=== PATIENT | male | born 1970 | race Caucasian/White ===

== ENCOUNTER 2023-09-13 10:29 | Inpatient (IN) | payer MEDICAID, OTHER ==
[~2023-09-13] VITALS: Ht 172.7 cm; Wt 60.9 kg
[2023-09-13] MEDS: METOPROLOL 5 MG/5 ML VIAL IV SCH ×3 (11:25→11:55)
[2023-09-13 12:03] LABS: VENOUS BASE EXCESS 3.1 (-2.0-2.0); VENOUS HCO3 29.3 MMOL/L (23.0-27.0); VENOUS O2 SATURATION 87.3 % (60.0-80.0); VENOUS PARTIAL PRESSURE CO2 50.7 mmHg (38.0-50.0); VENOUS STANDARD HCO3 26.9 MMOL/L; VENOUS TOTAL CO2 30.9 MMOL/L (24.0-28.0)
[2023-09-13 12:14] LABS: BASO % 0.2 % (0.0-1.0); HEMATOCRIT 44.3 % (42.0-52.0); LYMPH # 0.5 10^3/uL (1.5-5.0); LYMPH % 9.9 % (24.0-44.0); MEAN CORPUSCULAR HEMOGLOBIN 27.3 pg (27.0-33.0); MEAN CORPUSCULAR HGB CONC 31.6 g/dl (32.0-36.5); MEAN CORPUSCULAR VOLUME 86.5 fl (80.0-96.0); MONO # 0.4 10^3/uL (0.0-0.8); MONO % 8.8 % (2.0-8.0); NEUTROPHILS # 3.8 10^3/uL (1.5-8.5); NEUTROPHILS % 80.9 % (36.0-66.0); PLATELET COUNT, AUTOMATED 211 10^3/uL (150-450); RED BLOOD COUNT 5.12 10^6/uL (4.30-6.10); WHITE BLOOD COUNT 4.7 10^3/uL (4.0-10.0)
[2023-09-13 12:24] LABS: INR 1.42; PROTHROMBIN TIME 16.9 SECONDS (12.5-14.5)
[2023-09-13] MEDS ORDERED: WARF-58 PO (12:27)
[2023-09-13] MEDS ORDERED: DILT120C89 PO (12:27)
[2023-09-13 12:40] LABS: ALBUMIN 3.1 G/DL (3.2-5.2); ALKALINE PHOSPHATASE 277 U/L (46-116); ALT/SGPT 11 U/L (7.0-40); AST/SGOT 34 U/L (<34); BILIRUBIN,DIRECT 0.7 MG/DL (<0.4); BILIRUBIN,TOTAL 1.4 MG/DL (0.3-1.2); BLOOD UREA NITROGEN 11 MG/DL (9-23); CALCIUM LEVEL 8.7 MG/DL (8.5-10.1); CARBON DIOXIDE LEVEL 25 MMOL/L (20-31); CHLORIDE LEVEL 102 MMOL/L (98-107); GLOMERULAR FILTRATION RATE > 60.0 (>56); GLUCOSE, FASTING 89 MG/DL (60-100); MAGNESIUM LEVEL 1.8 MG/DL (1.8-2.4); POTASSIUM SERUM 4.3 MMOL/L (3.5-5.1); SODIUM LEVEL 135 MMOL/L (136-145); THYROID STIMULATING HORMONE 2.659 uIU/ML (0.55-4.78); TOTAL PROTEIN 7.3 G/DL (5.7-8.2)
[2023-09-13] MEDS ORDERED: FUROSEMIDE 40MG/4ML VIAL IV ONE (13:15)
[2023-09-13] MEDS ORDERED: MED REC IN PROGRESS XX SCH (13:35)
[2023-09-13] MEDS ORDERED: HOME MED LIST COMPLETE! XX SCH (14:40)
[2023-09-13 15:57] VITALS: BP 132/72; TEMP 98.4; O2SAT 97
[2023-09-13] MEDS ORDERED: METOPROLOL TART 25 MG TABLET PO ONE (16:00)
[2023-09-13] MEDS: FUROSEMIDE 40MG/4ML VIAL IV SCH (16:40)
[2023-09-13 19:48] VITALS: BP 116/76; TEMP 98.8; O2SAT 94
[2023-09-13] MEDS ORDERED: METOPROLOL TART 25 MG TABLET PO SCH (21:00)
[2023-09-13] MEDS: APIXABAN 5 MG TAB (ELIQUIS) PO SCH (21:20)
[2023-09-14] VITALS (7 sets, daily range): BP systolic 106–126; BP diastolic 62–77; TEMP 98.2–98.9; O2SAT 93–97
[2023-09-14 06:04] LABS: HEMATOCRIT 40.4 % (42.0-52.0); HEMOGLOBIN 12.7 g/dl (13.5-17.5); MEAN CORPUSCULAR HEMOGLOBIN 27.1 pg (27.0-33.0); MEAN CORPUSCULAR HGB CONC 31.4 g/dl (32.0-36.5); MEAN CORPUSCULAR VOLUME 86.1 fl (80.0-96.0); PLATELET COUNT, AUTOMATED 194 10^3/uL (150-450); RED BLOOD COUNT 4.69 10^6/uL (4.30-6.10); WHITE BLOOD COUNT 4.4 10^3/uL (4.0-10.0)
[2023-09-14 06:27] LABS: BLOOD UREA NITROGEN 14 MG/DL (9-23); CALCIUM LEVEL 8.9 MG/DL (8.5-10.1); CARBON DIOXIDE LEVEL 29 MMOL/L (20-31); CHLORIDE LEVEL 102 MMOL/L (98-107); CREATININE FOR GFR 1.13 MG/DL (0.70-1.30); GLOMERULAR FILTRATION RATE > 60.0 (>56); GLUCOSE, FASTING 96 MG/DL (60-100); MAGNESIUM LEVEL 1.8 MG/DL (1.8-2.4); POTASSIUM SERUM 4.3 MMOL/L (3.5-5.1); SODIUM LEVEL 138 MMOL/L (136-145)
[2023-09-14] MEDS ORDERED: SPIRONOLACTONE 25 MG TAB PO SCH (09:00)
[2023-09-14] MEDS ORDERED: ELIQ5TAB PO (09:22)
[2023-09-14] MEDS: APIXABAN 5 MG TAB (ELIQUIS) PO SCH ×2 (09:51→21:01)
[2023-09-14] MEDS: SPIRONOLACTONE 12.5MG PER 1/2 TABLET PO SCH (09:51)
[2023-09-14] MEDS: METOPROLOL TART 25 MG TABLET PO SCH ×4 (09:51→21:00)
[2023-09-14] MEDS: FUROSEMIDE 40MG/4ML VIAL IV SCH ×4 (09:51→18:27)
[2023-09-14] MEDS: MAGNESIUM OXIDE 400MG TAB (MAG-OX) PO SCH ×2 (13:13→21:01)
[2023-09-15] VITALS (9 sets, daily range): BP systolic 110–126; BP diastolic 65–75; TEMP 98.1–99.4; O2SAT 93–99
[2023-09-15 06:09] LABS: BASO % 0.2 % (0.0-1.0); HEMATOCRIT 41.3 % (42.0-52.0); HEMOGLOBIN 12.8 g/dl (13.5-17.5); LYMPH # 0.9 10^3/uL (1.5-5.0); LYMPH % 16.5 % (24.0-44.0); MEAN CORPUSCULAR HEMOGLOBIN 26.8 pg (27.0-33.0); MEAN CORPUSCULAR VOLUME 86.6 fl (80.0-96.0); MONO # 0.7 10^3/uL (0.0-0.8); MONO % 13.8 % (2.0-8.0); NEUTROPHILS # 3.6 10^3/uL (1.5-8.5); NEUTROPHILS % 69.3 % (36.0-66.0); PLATELET COUNT, AUTOMATED 218 10^3/uL (150-450); RED BLOOD COUNT 4.77 10^6/uL (4.30-6.10); WHITE BLOOD COUNT 5.2 10^3/uL (4.0-10.0)
[2023-09-15 06:40] LABS: BLOOD UREA NITROGEN 21 MG/DL (9-23); CALCIUM LEVEL 8.4 MG/DL (8.5-10.1); CARBON DIOXIDE LEVEL 31 MMOL/L (20-31); CHLORIDE LEVEL 99 MMOL/L (98-107); CREATININE FOR GFR 1.26 MG/DL (0.70-1.30); GLOMERULAR FILTRATION RATE > 60.0 (>56); GLUCOSE, FASTING 113 MG/DL (60-100); POTASSIUM SERUM 4.6 MMOL/L (3.5-5.1); SODIUM LEVEL 134 MMOL/L (136-145)
[2023-09-15] MEDS ORDERED: metOLazone 5 MG TAB PO ONE (09:00)
[2023-09-15] MEDS: MAGNESIUM OXIDE 400MG TAB (MAG-OX) PO SCH ×2 (09:25→20:52)
[2023-09-15] MEDS: METOPROLOL TART 25 MG TABLET PO SCH ×2 (09:25→20:52)
[2023-09-15] MEDS: SPIRONOLACTONE 12.5MG PER 1/2 TABLET PO SCH ×2 (09:25→20:52)
[2023-09-15] MEDS: FUROSEMIDE 40MG/4ML VIAL IV SCH (09:25)
[2023-09-15] MEDS: APIXABAN 5 MG TAB (ELIQUIS) PO SCH ×2 (09:25→20:52)
[2023-09-15] MEDS: FUROSEMIDE injection 250 MG in D5W 225 ML IV SCH (16:28)
[2023-09-16 03:47] VITALS: BP 124/79; TEMP 98.5; O2SAT 95
[2023-09-16 07:06] LABS: BASO % 0.4 % (0.0-1.0); HEMATOCRIT 41.5 % (42.0-52.0); HEMOGLOBIN 12.9 g/dl (13.5-17.5); LYMPH # 0.7 10^3/uL (1.5-5.0); LYMPH % 13.3 % (24.0-44.0); MEAN CORPUSCULAR HGB CONC 31.1 g/dl (32.0-36.5); MEAN CORPUSCULAR VOLUME 86.8 fl (80.0-96.0); MONO # 0.7 10^3/uL (0.0-0.8); MONO % 13.5 % (2.0-8.0); NEUTROPHILS # 3.9 10^3/uL (1.5-8.5); NEUTROPHILS % 72.2 % (36.0-66.0); PLATELET COUNT, AUTOMATED 211 10^3/uL (150-450); RED BLOOD COUNT 4.78 10^6/uL (4.30-6.10); WHITE BLOOD COUNT 5.4 10^3/uL (4.0-10.0)
[2023-09-16 07:41] VITALS: BP 128/62; TEMP 98.2; O2SAT 95; O2SAT 96
[2023-09-16 07:48] LABS: BLOOD UREA NITROGEN 22 MG/DL (9-23); CALCIUM LEVEL 9.6 MG/DL (8.5-10.1); CARBON DIOXIDE LEVEL 32 MMOL/L (20-31); CHLORIDE LEVEL 96 MMOL/L (98-107); CREATININE FOR GFR 1.27 MG/DL (0.70-1.30); GLOMERULAR FILTRATION RATE > 60.0 (>56); GLUCOSE, FASTING 110 MG/DL (60-100); MAGNESIUM LEVEL 2.1 MG/DL (1.8-2.4); POTASSIUM SERUM 4.4 MMOL/L (3.5-5.1); SODIUM LEVEL 136 MMOL/L (136-145)
[2023-09-16] MEDS: APIXABAN 5 MG TAB (ELIQUIS) PO SCH ×2 (08:07→20:59)
[2023-09-16] MEDS: MAGNESIUM OXIDE 400MG TAB (MAG-OX) PO SCH ×2 (08:07→20:59)
[2023-09-16] MEDS: SPIRONOLACTONE 12.5MG PER 1/2 TABLET PO SCH ×2 (08:07→20:59)
[2023-09-16] MEDS: METOPROLOL TART 25 MG TABLET PO SCH ×2 (08:08→20:59)
[2023-09-16 11:55] VITALS: BP 109/56; TEMP 98.6; O2SAT 97
[2023-09-16 16:00] VITALS: BP 118/73; TEMP 98.3; O2SAT 96
[2023-09-16] MEDS: FUROSEMIDE injection 250 MG in D5W 225 ML IV SCH (18:29)
[2023-09-16 20:09] VITALS: BP 112/68; TEMP 98.7; O2SAT 97
[2023-09-16 23:12] VITALS: BP 123/75; TEMP 98.7; O2SAT 94
[2023-09-17] VITALS (7 sets, daily range): BP systolic 110–120; BP diastolic 71–78; TEMP 98.2–99.2; O2SAT 92–98
[2023-09-17 06:48] LABS: CALCIUM LEVEL 9.4 MG/DL (8.5-10.1); CREATININE FOR GFR 1.34 MG/DL (0.70-1.30); GLOMERULAR FILTRATION RATE 58.9 (>56); MAGNESIUM LEVEL 2.1 MG/DL (1.8-2.4); POTASSIUM SERUM 4.4 MMOL/L (3.5-5.1)
[2023-09-17] MEDS: SPIRONOLACTONE 12.5MG PER 1/2 TABLET PO SCH ×2 (08:19→21:03)
[2023-09-17] MEDS: APIXABAN 5 MG TAB (ELIQUIS) PO SCH ×2 (08:20→21:03)
[2023-09-17] MEDS: MAGNESIUM OXIDE 400MG TAB (MAG-OX) PO SCH ×2 (08:20→21:03)
[2023-09-17] MEDS: FUROSEMIDE 20 MG TAB PO SCH ×2 (08:20→16:08)
[2023-09-17] MEDS: METOPROLOL TART 25 MG TABLET PO SCH ×2 (08:20→21:03)
[2023-09-18 03:44] VITALS: BP 107/66; TEMP 98.2; O2SAT 92
[2023-09-18 06:23] LABS: BASO % 0.4 % (0.0-1.0); HEMATOCRIT 40.6 % (42.0-52.0); HEMOGLOBIN 12.7 g/dl (13.5-17.5); LYMPH # 0.8 10^3/uL (1.5-5.0); LYMPH % 15.7 % (24.0-44.0); MEAN CORPUSCULAR HEMOGLOBIN 27.1 pg (27.0-33.0); MEAN CORPUSCULAR HGB CONC 31.3 g/dl (32.0-36.5); MEAN CORPUSCULAR VOLUME 86.6 fl (80.0-96.0); MONO # 0.7 10^3/uL (0.0-0.8); MONO % 12.7 % (2.0-8.0); NEUTROPHILS # 3.8 10^3/uL (1.5-8.5); PLATELET COUNT, AUTOMATED 221 10^3/uL (150-450); RED BLOOD COUNT 4.69 10^6/uL (4.30-6.10); WHITE BLOOD COUNT 5.3 10^3/uL (4.0-10.0)
[2023-09-18 06:43] LABS: CALCIUM LEVEL 8.9 MG/DL (8.5-10.1); CREATININE FOR GFR 1.33 MG/DL (0.70-1.30); GLOMERULAR FILTRATION RATE 59.4 (>56); MAGNESIUM LEVEL 2.3 MG/DL (1.8-2.4); POTASSIUM SERUM 4.6 MMOL/L (3.5-5.1)
[2023-09-18 08:07] VITALS: BP 120/77; TEMP 97.9; O2SAT 100
[2023-09-18] MEDS: FUROSEMIDE 20 MG TAB PO SCH (08:33)
[2023-09-18] MEDS: APIXABAN 5 MG TAB (ELIQUIS) PO SCH (08:33)
[2023-09-18] MEDS: SPIRONOLACTONE 12.5MG PER 1/2 TABLET PO SCH (08:33)
[2023-09-18] MEDS: MAGNESIUM OXIDE 400MG TAB (MAG-OX) PO SCH (08:33)
[2023-09-18] MEDS: METOPROLOL TART 25 MG TABLET PO SCH (08:33)
[2023-09-18] MEDS ORDERED: METO1TAB87 PO (09:25)
[2023-09-18] MEDS ORDERED: ALDA25TA2 PO (09:25)
[2023-09-18] MEDS ORDERED: MAGN400T2 PO (09:25)
[2023-09-18] MEDS ORDERED: FURO20TA2 PO (09:25)
[2023-09-18] MEDS ORDERED: METO25TA PO (09:28)
== END 2023-09-18 13:36 | disposition home health service (06) | DRG 194 ==
LOC: M ED 10:29 → M ED INP 14:34 → M PCU 15:51
PROVIDERS: ADMIT Internal Medicine; ATTEND Internal Medicine
DX: I50.33 Acute on chronic diastolic (congestive) heart failure (principal); N17.9 Acute kidney failure, unspecified; Q21.3 Tetralogy of Fallot; I27.20 Pulmonary hypertension, unspecified; I36.0 Nonrheumatic tricuspid (valve) stenosis; I48.92 Unspecified atrial flutter; E87.1 Hypo-osmolality and hyponatremia; R26.89 Other abnormalities of gait and mobility; F17.220 Nicotine dependence, chewing tobacco, uncomplicated; F32.A Depression, unspecified; N18.9 Chronic kidney disease, unspecified

== ENCOUNTER → 2023-09-24 | Outpatient (REF) | payer OTHER ==
[~2023-09-24] MED LIST: ALDA25TA2 PO; DILT120C89 PO; ELIQ5TAB PO; FURO20TA2 PO; MAGN400T2 PO; METO1TAB87 PO; METO25TA PO; WARF-58 PO
[2023-09-24 12:46] LABS: BASO % 0.4 % (0.0-1.0); HEMATOCRIT 43.9 % (42.0-52.0); HEMOGLOBIN 13.5 g/dl (13.5-17.5); LYMPH # 0.8 10^3/uL (1.5-5.0); LYMPH % 17.7 % (24.0-44.0); MEAN CORPUSCULAR HEMOGLOBIN 26.9 pg (27.0-33.0); MEAN CORPUSCULAR HGB CONC 30.8 g/dl (32.0-36.5); MEAN CORPUSCULAR VOLUME 87.5 fl (80.0-96.0); MONO # 0.7 10^3/uL (0.0-0.8); NEUTROPHILS # 3.2 10^3/uL (1.5-8.5); NEUTROPHILS % 67.7 % (36.0-66.0); PLATELET COUNT, AUTOMATED 252 10^3/uL (150-450); RED BLOOD COUNT 5.02 10^6/uL (4.30-6.10); WHITE BLOOD COUNT 4.7 10^3/uL (4.0-10.0)
[2023-09-24 13:17] LABS: ALBUMIN 3.9 G/DL (3.2-5.2); ALKALINE PHOSPHATASE 295 U/L (46-116); ALT/SGPT 18 U/L (7.0-40); AST/SGOT 36 U/L (<34); BILIRUBIN,TOTAL 1.5 MG/DL (0.3-1.2); BLOOD UREA NITROGEN 38 MG/DL (9-23); CALCIUM LEVEL 9.8 MG/DL (8.5-10.1); CARBON DIOXIDE LEVEL 33 MMOL/L (20-31); CHLORIDE LEVEL 95 MMOL/L (98-107); CREATININE FOR GFR 1.28 MG/DL (0.70-1.30); GLOMERULAR FILTRATION RATE > 60.0 (>56); GLUCOSE, FASTING 117 MG/DL (60-100); POTASSIUM SERUM 3.9 MMOL/L (3.5-5.1); SODIUM LEVEL 133 MMOL/L (136-145); TOTAL PROTEIN 8.4 G/DL (5.7-8.2)
== END ==
LOC: M LAB REF 12:22
PROVIDERS: ATTEND Family Medicine Addiction Medicine
DX: N28.9 Disorder of kidney and ureter, unspecified (principal); D64.9 Anemia, unspecified; E83.42 Hypomagnesemia

== ENCOUNTER 2024-08-20 15:01 | Inpatient (IN) | payer OTHER ==
[~2024-08-20] VITALS: Ht 172.7 cm; Wt 63.8 kg
[2024-08-20 16:45] LABS: BASO % 0.2 % (0.0-1.0); HEMATOCRIT 44.4 % (42.0-52.0); HEMOGLOBIN 13.6 g/dl (13.5-17.5); LYMPH # 0.4 10^3/uL (1.5-5.0); LYMPH % 6.9 % (24.0-44.0); MEAN CORPUSCULAR HGB CONC 30.6 g/dl (32.0-36.5); MEAN CORPUSCULAR VOLUME 91.5 fl (80.0-96.0); MONO # 0.7 10^3/uL (0.0-0.8); MONO % 11.8 % (2.0-8.0); NEUTROPHILS # 4.8 10^3/uL (1.5-8.5); NEUTROPHILS % 80.9 % (36.0-66.0); PLATELET COUNT, AUTOMATED 193 10^3/uL (150-450); RED BLOOD COUNT 4.85 10^6/uL (4.30-6.10); WHITE BLOOD COUNT 5.9 10^3/uL (4.0-10.0)
[2024-08-20 17:12] LABS: ALBUMIN 3.5 G/DL (3.2-5.2); ALKALINE PHOSPHATASE 402 U/L (40-129); ALT/SGPT 20 U/L (7.0-40); AST/SGOT 66 U/L (<34); BILIRUBIN,DIRECT 1.5 MG/DL (<0.4); BLOOD UREA NITROGEN 23 MG/DL (9-23); CALCIUM LEVEL 9.3 MG/DL (8.5-10.1); CARBON DIOXIDE LEVEL 28 MMOL/L (20-31); CHLORIDE LEVEL 105 MMOL/L (98-107); CK-MB VALUE MASS 5.9 NG/ML (<3.6); CPK CREATINE PHOSPHOKINASE 176 U/L (46-171); CREATININE FOR GFR 0.98 MG/DL (0.70-1.30); FREE T4 1.22 NG/DL (0.89-1.76); GLOMERULAR FILTRATION RATE > 60.0 (>56); GLUCOSE, FASTING 81 MG/DL (60-100); LIPASE 41 U/L (12-53); MB/CK RELATIVE INDEX 3.35 (< OR =4); POTASSIUM SERUM 5.4 MMOL/L (3.5-5.1); SODIUM LEVEL 137 MMOL/L (136-145); THYROID STIMULATING HORMONE 2.173 uIU/ML (0.55-4.78); TOTAL PROTEIN 8.7 G/DL (5.7-8.2)
[2024-08-20] MEDS: FUROSEMIDE 20MG/2ML VIAL IV ONE (17:37)
[2024-08-20 18:02] LABS: CK-MB VALUE MASS 4.5 NG/ML (<3.6); MB/CK RELATIVE INDEX 2.48 (< OR =4)
[2024-08-20] MEDS ORDERED: ELIQ5TAB PO (18:48)
[2024-08-20] MEDS ORDERED: FURO20TA2 PO (18:48)
[2024-08-20] MEDS ORDERED: SPIR-10 PO (18:48)
[2024-08-20] MEDS ORDERED: METO25TA4 PO (18:48)
[2024-08-20] MEDS ORDERED: HOME MED LIST COMPLETE! XX SCH (18:50)
[2024-08-20] MEDS ORDERED: ACETAMINOPHEN 325 MG TAB PO PRN (20:00)
[2024-08-20 21:56] VITALS: BP 127/72; TEMP 97.7; O2SAT 98
[2024-08-20] MEDS: APIXABAN 5 MG TAB (ELIQUIS) PO SCH (22:06)
[2024-08-20 23:26] VITALS: BP 98/58; TEMP 97.5; O2SAT 96
[2024-08-20] MEDS: FUROSEMIDE 40MG/4ML VIAL IV SCH (23:58)
[2024-08-21 04:22] VITALS: BP 117/63; TEMP 97.1; O2SAT 92
[2024-08-21 05:25] LABS: HEMATOCRIT 39.6 % (42.0-52.0); HEMOGLOBIN 12.5 g/dl (13.5-17.5); MEAN CORPUSCULAR HEMOGLOBIN 28.9 pg (27.0-33.0); MEAN CORPUSCULAR HGB CONC 31.6 g/dl (32.0-36.5); MEAN CORPUSCULAR VOLUME 91.5 fl (80.0-96.0); PLATELET COUNT, AUTOMATED 187 10^3/uL (150-450); RED BLOOD COUNT 4.33 10^6/uL (4.30-6.10); WHITE BLOOD COUNT 4.8 10^3/uL (4.0-10.0)
[2024-08-21 05:56] LABS: ALBUMIN 3.2 G/DL (3.2-5.2); ALKALINE PHOSPHATASE 367 U/L (40-129); ALT/SGPT 16 U/L (7.0-40); AST/SGOT 44 U/L (<34); BILIRUBIN,TOTAL 2.6 MG/DL (0.3-1.2); BLOOD UREA NITROGEN 25 MG/DL (9-23); CALCIUM LEVEL 9.4 MG/DL (8.5-10.1); CARBON DIOXIDE LEVEL 27 MMOL/L (20-31); CHLORIDE LEVEL 105 MMOL/L (98-107); CREATININE FOR GFR 1.16 MG/DL (0.70-1.30); GLOMERULAR FILTRATION RATE > 60.0 (>56); GLUCOSE, FASTING 87 MG/DL (60-100); MAGNESIUM LEVEL 2.3 MG/DL (1.8-2.4); POTASSIUM SERUM 4.3 MMOL/L (3.5-5.1); SODIUM LEVEL 139 MMOL/L (136-145); TOTAL PROTEIN 7.6 G/DL (5.7-8.2)
[2024-08-21] MEDS: SPIRONOLACTONE 25 MG TAB PO SCH (08:42)
[2024-08-21 08:50] VITALS: BP 100/71; TEMP 98.3; O2SAT 95
[2024-08-21 09:09] LABS: HEPATITIS B SURFACE ANTIGEN NEGATIVE (NEGATIVE)
[2024-08-21 09:22] LABS: HIV 1&2 SCREEN NEGATIVE (NEGATIVE)
[2024-08-21 09:30] LABS: HEPATITIS B CORE ANTIBODY IGM NEGATIVE (NEGATIVE)
[2024-08-21 11:23] VITALS: BP 111/70; TEMP 97.8; O2SAT 94
[2024-08-21] MEDS: FUROSEMIDE injection 100 MG, VIAL 2 BAG 13MM ADAPTER 1 EACH in D5W 100 ML IV SCH (11:37)
[2024-08-21] MEDS: LIDOCAINE W/EPINEPHRINE 1% 20ML VIAL SC ONE (13:49)
[2024-08-21] MEDS ORDERED: BACITRACIN OINTMENT 30GM TUBE TOP PRN (14:10)
[2024-08-21 14:23] LABS: TOTAL PROTEIN,RANDOM URINE < 6.0 MG/DL (0.0-14.0)
[2024-08-21] MEDS ORDERED: NEOSPORIN OINT 0.9 GM PKT TOP PRN (14:25)
[2024-08-21 15:20] VITALS: BP 117/75; TEMP 96.6; O2SAT 96
[2024-08-21 16:00] VITALS: BP 117/75; TEMP 98.3; O2SAT 96
[2024-08-21] MEDS ORDERED: FUROSEMIDE 40MG/4ML VIAL IV SCH (18:00)
[2024-08-21 19:49] VITALS: BP 133/66; TEMP 97.6; O2SAT 95
[2024-08-21] MEDS: METOPROLOL TART 12.5 MG PER 1/2 TAB PO SCH (20:32)
[2024-08-22] VITALS (7 sets, daily range): BP systolic 90–118; BP diastolic 60–72; TEMP 97–99; O2SAT 90–96
[2024-08-22 05:54] LABS: HEMATOCRIT 39.1 % (42.0-52.0); HEMOGLOBIN 12.3 g/dl (13.5-17.5); MEAN CORPUSCULAR HEMOGLOBIN 28.4 pg (27.0-33.0); MEAN CORPUSCULAR HGB CONC 31.5 g/dl (32.0-36.5); MEAN CORPUSCULAR VOLUME 90.3 fl (80.0-96.0); PLATELET COUNT, AUTOMATED 187 10^3/uL (150-450); RED BLOOD COUNT 4.33 10^6/uL (4.30-6.10); WHITE BLOOD COUNT 5.2 10^3/uL (4.0-10.0)
[2024-08-22 06:12] LABS: ALBUMIN 3.1 G/DL (3.2-5.2); ALKALINE PHOSPHATASE 356 U/L (40-129); ALT/SGPT 16 U/L (7.0-40); AST/SGOT 46 U/L (<34); BILIRUBIN,TOTAL 1.7 MG/DL (0.3-1.2); BLOOD UREA NITROGEN 29 MG/DL (9-23); CALCIUM LEVEL 9.1 MG/DL (8.5-10.1); CARBON DIOXIDE LEVEL 27 MMOL/L (20-31); CHLORIDE LEVEL 104 MMOL/L (98-107); CREATININE FOR GFR 1.28 MG/DL (0.70-1.30); GLOMERULAR FILTRATION RATE > 60.0 (>56); GLUCOSE, FASTING 107 MG/DL (60-100); POTASSIUM SERUM 4.1 MMOL/L (3.5-5.1); SODIUM LEVEL 137 MMOL/L (136-145); TOTAL PROTEIN 7.8 G/DL (5.7-8.2)
[2024-08-22 11:36] LABS: INR 2.29; PROTHROMBIN TIME 25.2 SECONDS (12.5-14.5)
[2024-08-22 17:15] LABS: MAGNESIUM LEVEL 2.1 MG/DL (1.8-2.4)
[2024-08-23] VITALS (24 sets, daily range): BP systolic 94–105; BP diastolic 59–67; TEMP 97.4–98.2; O2SAT 84–98
[2024-08-23] MEDS: SODIUM CHLORIDE NASAL 0.65% SPRAY BTL (OCEAN) PRN (01:21)
[2024-08-23 08:31] LABS: BLOOD UREA NITROGEN 30 MG/DL (9-23); CALCIUM LEVEL 8.9 MG/DL (8.5-10.1); CARBON DIOXIDE LEVEL 29 MMOL/L (20-31); CHLORIDE LEVEL 101 MMOL/L (98-107); GLOMERULAR FILTRATION RATE > 60.0 (>56); GLUCOSE, FASTING 91 MG/DL (60-100); MAGNESIUM LEVEL 2.1 MG/DL (1.8-2.4); SODIUM LEVEL 137 MMOL/L (136-145)
[2024-08-23] MEDS: DAPAGLIFLOZIN PROPANEDIOL 10MG TABLET (FARXIGA) PO SCH (10:54)
[2024-08-23 13:20] LABS: PERCENT SATURATION 19.2 % (19.7-50.0)
[2024-08-23 13:23] LABS: FERRITIN 40.5 NG/ML (10.5-307.3)
[2024-08-23] MEDS: FERRIC CARBOXYMALTOSE INJ 750 MG in SODIUM CHLORIDE 0.9% INJ 100 ML IV ONE (18:29)
[2024-08-24] VITALS (19 sets, daily range): BP systolic 99–106; BP diastolic 57–70; TEMP 96.9–98.4; O2SAT 90–95
[2024-08-24 07:44] LABS: PROTEIN, TOTAL SO 7.3 g/dL (6.1-8.1)
[2024-08-24 08:05] LABS: CREATININE FOR GFR 1.44 MG/DL (0.70-1.30); MAGNESIUM LEVEL 2.2 MG/DL (1.8-2.4); POTASSIUM SERUM 3.8 MMOL/L (3.5-5.1)
[2024-08-24 08:23] LABS: HEMATOCRIT 38.4 % (42.0-52.0); HEMOGLOBIN 12.3 g/dl (13.5-17.5); LYMPH # 0.5 10^3/uL (1.5-5.0); LYMPH % 9.3 % (24.0-44.0); MEAN CORPUSCULAR HEMOGLOBIN 28.7 pg (27.0-33.0); MEAN CORPUSCULAR VOLUME 89.5 fl (80.0-96.0); MONO # 0.8 10^3/uL (0.0-0.8); MONO % 12.9 % (2.0-8.0); NEUTROPHILS # 4.5 10^3/uL (1.5-8.5); NEUTROPHILS % 77.5 % (36.0-66.0); PLATELET COUNT, AUTOMATED 183 10^3/uL (150-450); RED BLOOD COUNT 4.29 10^6/uL (4.30-6.10); WHITE BLOOD COUNT 5.8 10^3/uL (4.0-10.0)
[2024-08-24] MEDS: NYSTATIN 100,000 UNITS/GM TOPICAL PWD 15GM TOP SCH (12:28)
[2024-08-24] MEDS: MIDODRINE 5 MG TAB PO SCH (12:28)
[2024-08-24] MEDS: MOM 30ML SUSPENSION UDC PO PRN (12:32)
[2024-08-24] MEDS: POTASSIUM CHLORIDE 10MEQ SR TABLET PO SCH (14:45)
[2024-08-24 15:22] LABS: FREE KAPPA LIGHT CHAINS SERUM 86.6 mg/L (3.3-19.4); FREE LAMBDA LIGHT CHAINS SERUM 55.4 mg/L (5.7-26.3); KAPPA/LAMBDA RATIO SERUM 1.56 (0.26-1.65)
[2024-08-24] MEDS: CLOBETASOL PROP 0.05% OINT 30 GM TOP SCH (21:00)
[2024-08-25] VITALS (7 sets, daily range): BP systolic 94–107; BP diastolic 53–72; TEMP 97.1–98.3; O2SAT 84–96
[2024-08-25 03:48] LABS: IGASUB2 > 600 mg/dL (46-378); IGASUB3 117 mg/dL (13-91); IgA SERUM (part of Subclasses) 834 mg/dL (47-310)
[2024-08-25 05:54] LABS: HEMOGLOBIN 12.4 g/dl (13.5-17.5); MEAN CORPUSCULAR HEMOGLOBIN 28.1 pg (27.0-33.0); MEAN CORPUSCULAR HGB CONC 31.8 g/dl (32.0-36.5); MEAN CORPUSCULAR VOLUME 88.4 fl (80.0-96.0); PLATELET COUNT, AUTOMATED 170 10^3/uL (150-450); RED BLOOD COUNT 4.41 10^6/uL (4.30-6.10); WHITE BLOOD COUNT 5.1 10^3/uL (4.0-10.0)
[2024-08-25 06:16] LABS: CALCIUM LEVEL 9.3 MG/DL (8.5-10.1); CREATININE FOR GFR 1.56 MG/DL (0.70-1.30); GLOMERULAR FILTRATION RATE 49.3 (>56); MAGNESIUM LEVEL 2.4 MG/DL (1.8-2.4)
[2024-08-25 08:16] LABS: ALBUMIN SO 3.4 g/dL (3.8-4.8); ALPHA 1 GLOBULINS SO 0.3 g/dL (0.2-0.3); ALPHA 2 GLOBULINS SO 0.5 g/dL (0.5-0.9); BETA 2 GLOBULIN SO 0.7 g/dL (0.2-0.5); BETA GLOBULIN SO 0.5 g/dL (0.4-0.6); GAMMA GLOBULINS SO 1.9 g/dL (0.8-1.7)
[2024-08-26 00:39] VITALS: BP 92/59; TEMP 97; O2SAT 93
[2024-08-26 04:01] VITALS: BP 97/58; TEMP 98; O2SAT 93
[2024-08-26 06:25] LABS: CALCIUM LEVEL 9.3 MG/DL (8.5-10.1); CREATININE FOR GFR 1.53 MG/DL (0.70-1.30); GLOMERULAR FILTRATION RATE 50.4 (>56); MAGNESIUM LEVEL 2.4 MG/DL (1.8-2.4); POTASSIUM SERUM 3.9 MMOL/L (3.5-5.1)
[2024-08-26 07:54] VITALS: BP 128/59; TEMP 98; O2SAT 94
[2024-08-26] MEDS ORDERED: LIDOCAINE 1% MDV 20ML VIAL As Ordered ONE (11:15)
[2024-08-26 16:45] VITALS: BP 137/68; TEMP 98.4; O2SAT 94
[2024-08-26 17:05] VITALS: BP 123/68; TEMP 97.5; O2SAT 96
[2024-08-26 20:00] VITALS: BP 138/72; TEMP 97.7; O2SAT 96
[2024-08-26] MEDS: TRIAMCINOLONE ACET 0.1% OINTMENT 80GM TOP SCH (20:51)
[2024-08-27 04:00] VITALS: BP 124/68; TEMP 97.7; O2SAT 96
[2024-08-27 05:24] LABS: CREATININE FOR GFR 1.48 MG/DL (0.70-1.30); GLOMERULAR FILTRATION RATE 52.3 (>56); MAGNESIUM LEVEL 2.4 MG/DL (1.8-2.4); POTASSIUM SERUM 3.8 MMOL/L (3.5-5.1)
[2024-08-27 12:00] VITALS: BP 125/71; TEMP 97.5; O2SAT 95
[2024-08-27] MEDS: BUMETANIDE 1 MG TAB PO SCH (16:32)
[2024-08-27] MEDS: SPIRONOLACTONE 25 MG TAB PO SCH (16:32)
[2024-08-27 20:25] VITALS: BP 121/71; TEMP 97.5; O2SAT 96
[2024-08-28 04:00] VITALS: BP 118/68; TEMP 97.9; O2SAT 98
[2024-08-28 05:13] LABS: HEMATOCRIT 39.4 % (42.0-52.0); HEMOGLOBIN 12.5 g/dl (13.5-17.5); MEAN CORPUSCULAR HEMOGLOBIN 28.3 pg (27.0-33.0); MEAN CORPUSCULAR HGB CONC 31.7 g/dl (32.0-36.5); MEAN CORPUSCULAR VOLUME 89.3 fl (80.0-96.0); PLATELET COUNT, AUTOMATED 144 10^3/uL (150-450); RED BLOOD COUNT 4.41 10^6/uL (4.30-6.10); WHITE BLOOD COUNT 4.8 10^3/uL (4.0-10.0)
[2024-08-28 05:25] LABS: BLOOD UREA NITROGEN 45 MG/DL (9-23); CALCIUM LEVEL 8.9 MG/DL (8.5-10.1); CARBON DIOXIDE LEVEL 31 MMOL/L (20-31); CHLORIDE LEVEL 98 MMOL/L (98-107); CREATININE FOR GFR 1.27 MG/DL (0.70-1.30); GLOMERULAR FILTRATION RATE > 60.0 (>56); GLUCOSE, FASTING 109 MG/DL (60-100); MAGNESIUM LEVEL 2.4 MG/DL (1.8-2.4); POTASSIUM SERUM 3.7 MMOL/L (3.5-5.1); SODIUM LEVEL 134 MMOL/L (136-145)
[2024-08-28] MEDS ORDERED: MIDO5TA PO (09:20)
[2024-08-28] MEDS ORDERED: TRIA1OI TOP (09:20)
[2024-08-28] MEDS ORDERED: POTA-151 PO (09:20)
[2024-08-28] MEDS ORDERED: BUME1TAB3 PO (09:20)
[2024-08-28] MEDS ORDERED: FARX1TAB3 PO (09:20)
[2024-08-28] MEDS ORDERED: SPIR-10 PO (09:20)
== END 2024-08-28 12:25 | disposition home health service (06) | DRG 194 ==
LOC: M ED 15:01 → M ED INP 19:59 → M PCU 21:35 → M MSPAV 08-26 17:07
PROVIDERS: ADMIT Internal Medicine; ATTEND Internal Medicine
PROC: 0JBP0ZZ Excision of Left Lower Leg Subcutaneous Tissue and Fascia, Open Approach (ICD-10-PCS; 2024-08-23)
PROC: 0JB83ZX Excision of Abdomen Subcutaneous Tissue and Fascia, Percutaneous Approach, Diagnostic (ICD-10-PCS; principal; 2024-08-26 12:00)
DX: I11.0 Hypertensive heart disease with heart failure (principal); E87.3 Alkalosis; N17.9 Acute kidney failure, unspecified; I31.39 Other pericardial effusion (noninflammatory); I27.20 Pulmonary hypertension, unspecified; I48.92 Unspecified atrial flutter; K76.1 Chronic passive congestion of liver; E78.5 Hyperlipidemia, unspecified; I48.91 Unspecified atrial fibrillation; J98.11 Atelectasis; K80.20 Calculus of gallbladder without cholecystitis without obstruction; L95.9 Vasculitis limited to the skin, unspecified; R21 Rash and other nonspecific skin eruption; R74.01 Elevation of levels of liver transaminase levels; Z79.899 Other long term (current) drug therapy; I50.33 Acute on chronic diastolic (congestive) heart failure; I50.82 Biventricular heart failure

== ENCOUNTER → 2024-09-10 | Outpatient (REF) | payer OTHER, MEDICAID ==
[~2024-09-10] MED LIST changes: +BUME1TAB3 PO; +FARX1TAB3 PO; +METO25TA4 PO; +MIDO5TA PO; +POTA-151 PO; +SPIR-10 PO; +TRIA1OI TOP
[2024-09-10 17:46] LABS: ALBUMIN 3.8 G/DL (3.2-5.2); BILIRUBIN,TOTAL 2.1 MG/DL (0.3-1.2); CALCIUM LEVEL 9.8 MG/DL (8.5-10.1); CREATININE FOR GFR 1.4 MG/DL (0.70-1.30); GLOMERULAR FILTRATION RATE 55.8 (>56); POTASSIUM SERUM 4.9 MMOL/L (3.5-5.1)
== END ==
LOC: M LAB REF 16:31
PROVIDERS: ATTEND Student in an Organized Health Care Education/Training Program
DX: I50.9 Heart failure, unspecified (principal); N17.9 Acute kidney failure, unspecified; Q21.3 Tetralogy of Fallot; I48.92 Unspecified atrial flutter

== ENCOUNTER → 2024-09-20 | Outpatient (REF) | payer OTHER, MEDICAID ==
[2024-09-20 13:40] LABS: CALCIUM LEVEL 9.9 MG/DL (8.5-10.1); CREATININE FOR GFR 1.33 MG/DL (0.70-1.30); GLOMERULAR FILTRATION RATE 59.2 (>56); POTASSIUM SERUM 4.9 MMOL/L (3.5-5.1)
== END ==
LOC: M LAB REF 13:07
PROVIDERS: ATTEND Student in an Organized Health Care Education/Training Program
DX: N17.9 Acute kidney failure, unspecified (principal)

== ENCOUNTER → 2025-06-24 | Outpatient (CLI) | payer OTHER ==
[2025-06-24 13:30] VITALS: TEMP 98.8
[2025-06-24 16:15] VITALS: BP 113/77; O2SAT 98
== END ==
LOC: M IRPRO 13:24
PROVIDERS: ATTEND Internal Medicine Cardiovascular Disease
DX: J90 Pleural effusion, not elsewhere classified (principal)